=== PATIENT | male | born 1985 | race Caucasian/White ===

== ENCOUNTER 2016-04-01 09:45 | Emergency (ER) | payer OTHER ==
--- NOTE | 2016-04-01 12:01 | REP ---
Clinical: Trauma. Technique: AP, lateral, bilateral oblique views right foot . Findings: The osseous structures and joint spaces are intact and normal. There is no evidence for acute fracture or dislocation. Surrounding soft tissues are unremarkable. No subcutaneous emphysema or radiodense foreign body. Impression: No acute fracture or dislocation. Signed by Alvin Law MD 04/01/2016 11:52 A
--- NOTE | 2016-04-01 12:25 | EDDOCDS ---
Nurse's Notes [facility] Name: Stewart Macias Age: 30 yrs Sex: Male : 1985 Arrival Date: 04/01/2016 Time: 09:45 Bed PR Private MD: NO PRIMARY PHYSICIAN, . Diagnosis: Contusion of right foot Presentation: 04/01 09:55 Presenting complaint: Patient states: Pt presents with injury to right ankle at work dls 3-4 days ago today while shoveling snow re injured ankle. The patients lower extremity appears normal on examination. Adult Sepsis Screening: The patient does not have new or worsening altered mentation. Patient's respiratory rate is less than 22. Systolic blood pressure is greater than 100. Patient has a qSOFA score of 0- Negative Sepsis Screen. Suicide/Homicide risk assessment- the patient denies having any suicidal and/or homicidal ideations and does not present with any other emotional, behavioral or mental health complaints. 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 Transition of care: patient was not received from another setting of care. 09:55 Acuity: SOPHY Level 4 dls 09:55 Method Of Arrival: Walkin/Carried/Asstd dls Triage Assessment: 09:57 General: Appears in no apparent distress, well developed, well nourished, well groomed, dls Behavior is cooperative. Pain: Pain currently is 5 out of 10 on a pain scale. HIV screening NA for this visit Offered previously. Historical: - Allergies: all cillins; - Home Meds: 1. none - PMHx: PTSD; TBI; - PSHx: wisdom teeth; - Social history: Smoking status: Patient uses tobacco products, heavy tobacco smoker. No barriers to communication noted, The patient speaks fluent Nepalese. - Family history: Not pertinent. - : The pt / caregiver states he / she is not on anticoagulants. Home medication list is obtained from the patient. - Exposure Risk Screening:: None identified. Screenin:21 Screening information is obtained from the patient. Primary language is Nepalese. Fall kcs risk: No risks identified. Assistance ADL's: requires no assistance with activities of daily living. Abuse/DV Screen: The patient / caregiver reports he/she is: not in a situation that causes fear, pain or injury. Nutritional screening: No deficits noted. Advance Directives: Currently, there is no health care proxy. There is no active DNR order. There is no living will. There is no Power of Patient Care Secretary. Advance directive information has not previously been placed in an [facility] medical record. home support is adequate. Assessment: 12:20 General: Appears uncomfortable, well developed, well nourished, well groomed, Behavior kcs is cooperative. Awake, alert, oriented. Skin warm and dry. Moves all extremities. Bilateral breath sounds clear. Respirations unlabored. Abdomen soft, non-tender. No apparent distress. The patient / caregiver is instructed regarding the plan of care and ED course. Vital Signs: 09:47 BP 115 / 77; Pulse 83; Resp 18; Temp 98.6(O); Pulse Ox 98% on R/A; Weight 102.06 kg ct3 (R); Height 76 in. (193.04 cm) (R); Pain 6/10; 09:47 Body Mass Index 27.39 (102.06 kg, 193.04 cm) ct3 Vitals: 09:47 Log In Time: April 01, 2016 at 09:45. ct3 ED Course: 09:46 Patient visited by Kate Rizvi PCA. ct3 09:46 Patient moved to Waiting ct3 09:47 Ana [facility] is Private Physician. ct3 09:47 NO PRIMARY PHYSICIAN, . is Private Physician. ct3 09:48 Patient moved to Pre RCE ct3 09:56 Triage Initiated dls 10:47 Patient moved to Triage 2 kcs 10:57 [facility] ar2 10:57 An Tai MD is Attending Physician. ar2 10:57 Patient visited by Elijah Juan PA-C. ar2 11:11 Patient moved to TR1 kcs 11:26 Patient moved to PR2 / 26 ar2 11:41 Patient visited by Savanna Willis RN. mk4 12:09 [facility] is Referral Physician. ar2 12:14 Foot, Complete Returned. EDMS 12:21 Accompanied by Significant Other, Patient has correct armband on for positive kcs identification. Bed in low position. Call light in reach. 12:23 No IV's were initiated during this patient's visit. No procedures done that require kcs assistance. Order Results: Radiology Order: Foot, Complete Test: Foot, Complete REASON FOR EXAMINATION: trauma, lateral foot pain; Clinical: Trauma.; ; Technique: AP, lateral, bilateral oblique views right foot .; ; Findings: The osseous structures and joint spaces are intact and normal. There; is no evidence for acute fracture or dislocation. Surrounding soft tissues are; unremarkable. No subcutaneous emphysema or radiodense foreign body.; ; Impression:; No acute fracture or dislocation.; ; ; Signed by; Alvin Law MD 04/01/2016 11:52 A; Outcome: 12:09 Discharge ordered by Provider. ar2 12:21 The following High Risk Discharge criteria are identified: None. Discharged to home kcs ambulatory, with significant other. Condition: stable. Discharge instructions given to patient, Instructed on discharge instructions, follow up and referral plans. medication usage, Demonstrated understanding of instructions, medications, Pt was receptive of discharge instructions/ teaching. No special radiology studies were completed. 12:23 Discharge Assessment: Patient awake, alert and oriented x 3. No cognitive and/or kcs functional deficits noted. Patient verbalized understanding of disposition instructions. patient administered narcotics - no. Property :Personal belongings accompany Pt. 12:24 Patient left the ED. kcs Signatures: Dispatcher [employer] EDMS Stacey Cadena RN RN Angeles Noonan RN Elijah Hope PA-C PARoya ar2 Kate Rizvi, [employer] INS[employer]ATOR ct3 Savanna Willis RN RN mk4 MTDD
--- NOTE | 2016-04-01 12:25 | EDDOCDS ---
Physician Documentation [facility] Name: Stewart Macias Age: 30 yrs Sex: Male : 1985 Arrival Date: 04/01/2016 Time: 09:45 Bed PR Private MD: NO PRIMARY PHYSICIAN, . Disposition: 04/01/16 12:09 Discharged to Home/Self Care. Impression: Contusion of right foot. - Condition is Stable. - Discharge Instructions: Foot Contusion. - Medication Reconciliation, Local Pharmacy Hours, Work Release Form - 1 day form. - [facility] up: [facility]; When: Call to arrange an appointment; Reason: To establish care. - Problem is new. - Symptoms are unchanged. Historical: - Allergies: all cillins; - Home Meds: 1. none - PMHx: PTSD; TBI; - PSHx: wisdom teeth; - Social history: Smoking status: Patient uses tobacco products, heavy tobacco smoker. No barriers to communication noted, The patient speaks fluent Yakut. - Family history: Not pertinent. - : The pt / caregiver states he / she is not on anticoagulants. Home medication list is obtained from the patient. - Exposure Risk Screening:: None identified. Vital Signs: 04/01 09:47 BP 115 / 77; Pulse 83; Resp 18; Temp 98.6(O); Pulse Ox 98% on R/A; Weight 102.06 kg / ct3 225 lbs (R); Height 76 in. (193.04 cm) (R); Pain 6/10; 09:47 Body Mass Index 27.39 (102.06 kg, 193.04 cm) ct3 MDM: 11:03 Financial registration complete. lg 11:11 Foot, Complete Ordered. EDMS Signatures: Dispatcher [employer] EDMS Stacey Cadena RN RN Angeles Noonan RN RN dls Ignacio James, Gilberto Reg lg Elijah Juan PA-C PA-C ar2 MTDD
--- NOTE | 2016-04-03 13:25 | EDDOCDS ---
Physician Documentation [facility] Name: Stewart Macias Age: 30 yrs Sex: Male : 1985 Arrival Date: 04/01/2016 Time: 09:45 Bed PR Private MD: NO PRIMARY PHYSICIAN, . Disposition: 04/01/16 12:09 Discharged to Home/Self Care. Impression: Contusion of right foot. - Condition is Stable. - Discharge Instructions: Foot Contusion. - Medication Reconciliation, Local Pharmacy Hours, Work Release Form - 1 day form. - Follow up: [facility]; When: Call to arrange an appointment; Reason: To establish care. - Problem is new. - Symptoms are unchanged. Historical: - Allergies: all cillins; - Home Meds: 1. none - PMHx: PTSD; TBI; - PSHx: wisdom teeth; - Social history: Smoking status: Patient uses tobacco products, heavy tobacco smoker. No barriers to communication noted, The patient speaks fluent Hungarian. - Family history: Not pertinent. - : The pt / caregiver states he / she is not on anticoagulants. Home medication list is obtained from the patient. - Exposure Risk Screening:: None identified. Vital Signs: 04/01 09:47 BP 115 / 77; Pulse 83; Resp 18; Temp 98.6(O); Pulse Ox 98% on R/A; Weight 102.06 kg / ct3 225 lbs (R); Height 76 in. (193.04 cm) (R); Pain 6/10; 09:47 Body Mass Index 27.39 (102.06 kg, 193.04 cm) ct3 MDM: 11:03 Financial registration complete. lg 11:11 Foot, Complete Ordered. EDMS 13:22 [facility] Payment Agreement was scanned into [employer] and attached to record. lg 04/02 12:22 T-Sheet-- Draft Copy was scanned into [employer] and attached to record. gb 12:22 Radiology Report was scanned into [employer] and attached to record. gb Signatures: Dispatcher [employer] EDNM Stacey Cadena RN RN kcs Scott, Debra, RN RN dls Brina Mcdermott, Reg Reg gb Ignacio James, Reg Reg lg Elijah Juan PA-C PA-C ar2 The chart was reviewed and I authenticate all verbal orders and agree with the evaluation and treatment provided.Attachments: 04/01 13:22 [facility] Payment Agreement lg 04/02 12:22 T-Sheet-- Draft Copy gb Chart Complete MTDD
--- NOTE | 2016-04-03 13:25 | EDDOCDS ---
Nurse's Notes [facility] Name: Stewart Macias Age: 30 yrs Sex: Male : 1985 Arrival Date: 04/01/2016 Time: 09:45 Bed PR Private MD: NO PRIMARY PHYSICIAN, . Diagnosis: Contusion of right foot Presentation: 04/01 09:55 Presenting complaint: Patient states: Pt presents with injury to right ankle at work dls 3-4 days ago today while shoveling snow re injured ankle. The patients lower extremity appears normal on examination. Adult Sepsis Screening: The patient does not have new or worsening altered mentation. Patient's respiratory rate is less than 22. Systolic blood pressure is greater than 100. Patient has a qSOFA score of 0- Negative Sepsis Screen. Suicide/Homicide risk assessment- the patient denies having any suicidal and/or homicidal ideations and does not present with any other emotional, behavioral or mental health complaints. 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 Transition of care: patient was not received from another setting of care. 09:55 Acuity: SOPHY Level 4 dls 09:55 Method Of Arrival: Walkin/Carried/Asstd dls Triage Assessment: 09:57 General: Appears in no apparent distress, well developed, well nourished, well groomed, dls Behavior is cooperative. Pain: Pain currently is 5 out of 10 on a pain scale. HIV screening NA for this visit Offered previously. Historical: - Allergies: all cillins; - Home Meds: 1. none - PMHx: PTSD; TBI; - PSHx: wisdom teeth; - Social history: Smoking status: Patient uses tobacco products, heavy tobacco smoker. No barriers to communication noted, The patient speaks fluent Surinamese. - Family history: Not pertinent. - : The pt / caregiver states he / she is not on anticoagulants. Home medication list is obtained from the patient. - Exposure Risk Screening:: None identified. Screenin:21 Screening information is obtained from the patient. Primary language is Surinamese. Fall kcs risk: No risks identified. Assistance ADL's: requires no assistance with activities of daily living. Abuse/DV Screen: The patient / caregiver reports he/she is: not in a situation that causes fear, pain or injury. Nutritional screening: No deficits noted. Advance Directives: Currently, there is no health care proxy. There is no active DNR order. There is no living will. There is no Power of Operations Program Manager. Advance directive information has not previously been placed in an [facility] medical record. home support is adequate. Assessment: 12:20 General: Appears uncomfortable, well developed, well nourished, well groomed, Behavior kcs is cooperative. Awake, alert, oriented. Skin warm and dry. Moves all extremities. Bilateral breath sounds clear. Respirations unlabored. Abdomen soft, non-tender. No apparent distress. The patient / caregiver is instructed regarding the plan of care and ED course. Vital Signs: 09:47 BP 115 / 77; Pulse 83; Resp 18; Temp 98.6(O); Pulse Ox 98% on R/A; Weight 102.06 kg ct3 (R); Height 76 in. (193.04 cm) (R); Pain 6/10; 09:47 Body Mass Index 27.39 (102.06 kg, 193.04 cm) ct3 Vitals: 09:47 Log In Time: April 01, 2016 at 09:45. ct3 ED Course: 09:46 Patient visited by Kate Rizvi PCA. ct3 09:46 Patient moved to Waiting ct3 09:47 Ana [facility] is Private Physician. ct3 09:47 NO PRIMARY PHYSICIAN, . is Private Physician. ct3 09:48 Patient moved to Pre RCE ct3 09:56 Triage Initiated dls 10:47 Patient moved to Triage 2 kcs 10:57 Elijah Juan PA-C is PHCP. ar2 10:57 An Tai MD is Attending Physician. ar2 10:57 Patient visited by Elijah Juan PA-C. ar2 11:11 Patient moved to TR1 kcs 11:26 Patient moved to PR2 / 26 ar2 11:41 Patient visited by Savanna Willis RN. mk4 12:09 [facility] is Referral Physician. ar2 12:14 Foot, Complete Returned. EDMS 12:21 Accompanied by Significant Other, Patient has correct armband on for positive kcs identification. Bed in low position. Call light in reach. 12:23 No IV's were initiated during this patient's visit. No procedures done that require kcs assistance. 13:22 [facility] [place] was scanned into [employer] and attached to record. lg 04/02 12:22 T-Sheet-- Draft Copy was scanned into [employer] and attached to record. gb 12:22 Radiology Report was scanned into [employer] and attached to record. gb Order Results: Radiology Order: Foot, Complete Test: Foot, Complete REASON FOR EXAMINATION: trauma, lateral foot pain; Clinical: Trauma.; ; Technique: AP, lateral, bilateral oblique views right foot .; ; Findings: The osseous structures and joint spaces are intact and normal. There; is no evidence for acute fracture or dislocation. Surrounding soft tissues are; unremarkable. No subcutaneous emphysema or radiodense foreign body.; ; Impression:; No acute fracture or dislocation.; ; ; Signed by; Alvin Law MD 04/01/2016 11:52 A; Outcome: 04/01 12:09 Discharge ordered by Provider. ar2 12:21 The following High Risk Discharge criteria are identified: None. Discharged to home kcs ambulatory, with significant other. Condition: stable. Discharge instructions given to patient, Instructed on discharge instructions, follow up and referral plans. medication usage, Demonstrated understanding of instructions, medications, Pt was receptive of discharge instructions/ teaching. No special radiology studies were completed. 12:23 Discharge Assessment: Patient awake, alert and oriented x 3. No cognitive and/or kcs functional deficits noted. Patient verbalized understanding of disposition instructions. patient administered narcotics - no. Property :Personal belongings accompany Pt. 12:24 Patient left the ED. kcs Signatures: Dispatcher [employer] EDMS Stacey Cadena RN RN kcs Scott, Debra RN Brina Porter, Reg Reg gb Ignacio James, Reg Reg lg Elijah Juan, PA-C PA-C ar2 Kate Rizvi, COOK TACO COOK TACO ct3 Savanna Willis RN RN mk4 Chart Complete MTDD
--- NOTE | 2016-04-03 13:25 | EDDOCDS ---
Physician Documentation [facility] Name: Stewart Macias Age: 30 yrs Sex: Male : 1985 Arrival Date: 04/01/2016 Time: 09:45 Bed PR Private MD: NO PRIMARY PHYSICIAN, . Disposition: 04/01/16 12:09 Discharged to Home/Self Care. Impression: Contusion of right foot. - Condition is Stable. - Discharge Instructions: Foot Contusion. - Medication Reconciliation, Local Pharmacy Hours, Work Release Form - 1 day form. - Follow up: [facility]; When: Call to arrange an appointment; Reason: To establish care. - Problem is new. - Symptoms are unchanged. Historical: - Allergies: all cillins; - Home Meds: 1. none - PMHx: PTSD; TBI; - PSHx: wisdom teeth; - Social history: Smoking status: Patient uses tobacco products, heavy tobacco smoker. No barriers to communication noted, The patient speaks fluent Icelandic. - Family history: Not pertinent. - : The pt / caregiver states he / she is not on anticoagulants. Home medication list is obtained from the patient. - Exposure Risk Screening:: None identified. Vital Signs: 04/01 09:47 BP 115 / 77; Pulse 83; Resp 18; Temp 98.6(O); Pulse Ox 98% on R/A; Weight 102.06 kg / ct3 225 lbs (R); Height 76 in. (193.04 cm) (R); Pain 6/10; 09:47 Body Mass Index 27.39 (102.06 kg, 193.04 cm) ct3 MDM: 11:03 Financial registration complete. lg 11:11 Foot, Complete Ordered. EDMS 13:22 [facility] Payment Agreement was scanned into [employer] and attached to record. lg 04/02 12:22 T-Sheet-- Draft Copy was scanned into [employer] and attached to record. gb 12:22 Radiology Report was scanned into [employer] and attached to record. gb Signatures: Dispatcher [employer] EDPR Stacey Cadena RN RN kcs Scott, Debra, RN RN dls Brina Mcdermott, Reg Reg gb Ignacio James, Reg Reg lg Elijah Juan PA-C PA-C ar2 The chart was reviewed and I authenticate all verbal orders and agree with the evaluation and treatment provided.Attachments: 04/01 13:22 [facility] [place] Agreement lg 04/02 12:22 T-Sheet-- Draft Copy gb Chart Complete MTDD
== END 2016-04-01 12:24 | disposition home or self-care (01) ==
LOC: M ED 09:45
DX: S90.31XA Contusion of right foot, initial encounter (principal); X58.XXXA Exposure to other specified factors, initial encounter; Y92.89 Other specified places as the place of occurrence of the external cause; Y93.89 Activity, other specified; Y99.8 Other external cause status; F43.10 Post-traumatic stress disorder, unspecified; Z87.820 Personal history of traumatic brain injury; Z88.0 Allergy status to penicillin; F17.210 Nicotine dependence, cigarettes, uncomplicated

== ENCOUNTER 2016-06-22 12:15 | Emergency (ER) | payer OTHER ==
[~2016-06-22] VITALS: Ht 193 cm; Wt 99.8 kg
[2016-06-22 13:18] LABS: BASO # 0.1 K/mm3 (0.0-0.2); EOS # 0.5 K/mm3 (0.0-0.50); EOS % 5.2 % (0.0-3.0); LARGE UNSTAINED CELL # 0.1 K/mm3 (0.0-0.4); LARGE UNSTAINED CELL % 1.2 % (0.0-4.0); LYMPH # 2.6 K/mm3 (1.5-6.5); LYMPH % 28.2 % (24.0-44.0); MEAN CORPUSCULAR HEMOGLOBIN 30.3 pg (27.0-33.0); MEAN CORPUSCULAR HGB CONC 33.6 g/dl (32.0-36.5); MEAN CORPUSCULAR VOLUME 90.2 fl (80.0-96.0); MONO # 0.4 K/mm3 (0.0-0.8); NEUTROPHILS # 5.3 K/mm3 (1.8-7.7); NEUTROPHILS % 59.5 % (36.0-66.0); PLATELET COUNT, AUTOMATED 263 k/mm3 (150-450); RED CELL DISTRIBUTION WIDTH 12.5 % (11.5-14.5); WHITE BLOOD COUNT 8.9 K/mm3 (4.0-10.0)
[2016-06-22 13:39] LABS: ERYTHROCYTE SEDIMENTATION RATE 1 mm/hr (0-15)
[2016-06-22 13:46] LABS: ANION GAP 5 MEQ/L (8-16); BLOOD UREA NITROGEN 12 MG/DL (7-18); CALCIUM LEVEL 9.1 MG/DL (8.5-10.1); CARBON DIOXIDE LEVEL 30 MEQ/L (21-32); CHLORIDE LEVEL 105 MEQ/L (98-107); GLOMERULAR FILTRATION RATE > 60.0 (>60); GLUCOSE, FASTING 75 MG/DL (70-105); POTASSIUM SERUM 4.1 MEQ/L (3.5-5.1); SODIUM LEVEL 140 MEQ/L (136-145); T UPTAKE 33 % (33-40); THYROXINE (T4) 7.9 UG/DL (4.5-12.0)
[2016-06-22] MEDS ORDERED: ISOVUE-370 76% 100ML VIAL (Q9967) As Ordered ONE (14:12)
[2016-06-22] MEDS ORDERED: HYDR1CRE27 TOP (14:48)
[2016-06-22 15:19] VITALS: BP 122/78
--- NOTE | 2016-06-23 08:11 | REP ---
CT NECK WITH CONTRAST: HISTORY: Right neck mass. COMPARISON: None. CONTRAST: 100 mL Isovue-370 SUPRAHYOID NECK: The parapharyngeal, retropharyngeal, pharyngomucosal, carotid, horse show judge and parotid spaces are normal. The prevertebral and paraspinal components of the perivertebral space are normal. INFRAHYOID NECK: The aforementioned neck spaces along with the posterior cervical space are normal. Anterior to the thyroid cartilage on the right, there is a 1.6 x 1.3 x 1.1 cm sized low density mass, but having higher than water Hounsfield unit readings. 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 Signed by Dev Arenas DO 06/23/2016 09:55 A
== END 2016-06-22 15:15 | disposition home or self-care (01) ==
LOC: M ED 12:54
DX: Q18.0 Sinus, fistula and cyst of branchial cleft (principal); R21 Rash and other nonspecific skin eruption; M25.561 Pain in right knee; M25.562 Pain in left knee; F17.200 Nicotine dependence, unspecified, uncomplicated; Z88.0 Allergy status to penicillin
CPT/HCPCS: 70491; 80048; 84436; 84443; 84479; 85025; 85652; 86140; 99282; Q9967

== ENCOUNTER 2016-08-12 23:13 | Emergency (ER) | payer OTHER ==
[~2016-08-12] VITALS: Ht 182.9 cm; Wt 103.1 kg
[~2016-08-12 23:13] MED LIST: HYDR1CRE27 TOP
[2016-08-13] MEDS ORDERED: NS 1,000 ML IV ONE
[2016-08-13] MEDS ORDERED: KETOROLAC 30 MG/ML VIAL (J1885) IV ONE
[2016-08-13 00:07] LABS: BASO # 0.1 K/mm3 (0.0-0.2); BASO % 0.8 % (0.0-1.0); EOS # 0.5 K/mm3 (0.0-0.50); EOS % 5.3 % (0.0-3.0); LARGE UNSTAINED CELL # 0.1 K/mm3 (0.0-0.4); LARGE UNSTAINED CELL % 1.5 % (0.0-4.0); LYMPH # 3.1 K/mm3 (1.5-6.5); LYMPH % 31.3 % (24.0-44.0); MEAN CORPUSCULAR HEMOGLOBIN 31.1 pg (27.0-33.0); MEAN CORPUSCULAR HGB CONC 34.3 g/dl (32.0-36.5); MEAN CORPUSCULAR VOLUME 90.6 fl (80.0-96.0); MONO # 0.5 K/mm3 (0.0-0.8); MONO % 4.7 % (0.0-5.0); NEUTROPHILS # 5.4 K/mm3 (1.8-7.7); NEUTROPHILS % 56.4 % (36.0-66.0); PLATELET COUNT, AUTOMATED 212 k/mm3 (150-450); RED CELL DISTRIBUTION WIDTH 12.4 % (11.5-14.5); WHITE BLOOD COUNT 9.5 K/mm3 (4.0-10.0)
[2016-08-13 00:12] LABS: ANION GAP 4 MEQ/L (8-16); BLOOD UREA NITROGEN 11 MG/DL (7-18); CALCIUM LEVEL 9.6 MG/DL (8.5-10.1); CARBON DIOXIDE LEVEL 30 MEQ/L (21-32); CHLORIDE LEVEL 108 MEQ/L (98-107); CREATININE FOR GFR 0.87 MG/DL (0.70-1.30); GLOMERULAR FILTRATION RATE > 60.0 (>60); GLUCOSE, FASTING 102 MG/DL (70-105); POTASSIUM SERUM 3.7 MEQ/L (3.5-5.1); SODIUM LEVEL 142 MEQ/L (136-145)
[2016-08-13] MEDS ORDERED: ONDANSETRON 4MG/2ML VIAL (J2405) IV ONE (02:45)
[2016-08-13 02:57] VITALS: BP 135/94
--- NOTE | 2016-08-13 06:18 | REP ---
Clinical: Chest pain . Comparison: None . Technique: PA and lateral. Findings: The mediastinum and cardiac silhouette are normal. The lung plummer are clear and without acute consolidation, effusion, or pneumothorax. The skeletal structures are intact and normal. Impression: 1. No acute cardiopulmonary process. Signed by Alvin Law MD 08/13/2016 06:09 A
--- NOTE | 2016-08-14 07:25 | ECGEPIP ---
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
== END 2016-08-13 00:46 | disposition home or self-care (01) ==
LOC: M ED 23:13
DX: R07.89 Other chest pain (principal); F17.200 Nicotine dependence, unspecified, uncomplicated; Z88.0 Allergy status to penicillin
CPT/HCPCS: 36415; 71020; 80048; 82550; 82553; 85025; 85379; 93005; 93041; 94760; 96374; 96375; 99285; J1885; J2405

== ENCOUNTER 2017-03-29 12:54 | Emergency (ER) | payer OTHER ==
[2017-03-29] MEDS: ACETAMINOPHEN TAB 650MG DOSE (2X325MG) PO (15:42)
[2017-03-29] MEDS: IBUPROFEN 800 MG TAB PO (15:42)
[2017-03-29 15:56] LABS: INFLUENZA A AMPLIFICATION POSITIVE (NEGATIVE); INFLUENZA B AMPLIFICATION NEGATIVE (NEGATIVE)
[2017-03-29] MEDS: OSELTAMIVIR PHOSPHATE 75 MG CAP (TAMIFLU) PO (16:45)
== END 2017-03-29 17:00 | disposition home or self-care (01) ==
LOC: M ED 12:54
DX: J09.X2 Influenza due to identified novel influenza A virus with other respiratory manifestations (principal); F17.200 Nicotine dependence, unspecified, uncomplicated; Z88.0 Allergy status to penicillin
CPT/HCPCS: 87502

== ENCOUNTER 2018-02-10 08:01 | Emergency (ER) | payer OTHER ==
[~2018-02-10] VITALS: Ht 193 cm; Wt 100.0 kg
[2018-02-10 08:01] VITALS: BP 162/100
[~2018-02-10 08:01] MED LIST changes: +OSEL75CA PO
[2018-02-10] MEDS ORDERED: APAP325T4 PO (08:05)
[2018-02-10] MEDS ORDERED: IBUP-1022 PO (08:05)
[2018-02-10] MEDS ORDERED: PERC5TAB12 PO (08:29)
[2018-02-10] MEDS ORDERED: PERCOCET 5MG/325MG TAB PO SCH (08:30)
== END 2018-02-10 08:42 | disposition home or self-care (01) ==
LOC: M ED 08:01
DX: R03.0 Elevated blood-pressure reading, without diagnosis of hypertension (principal); K08.89 Other specified disorders of teeth and supporting structures; S02.5XXA Fracture of tooth (traumatic), initial encounter for closed fracture; X58.XXXA Exposure to other specified factors, initial encounter; Y92.89 Other specified places as the place of occurrence of the external cause; F17.200 Nicotine dependence, unspecified, uncomplicated; Z88.0 Allergy status to penicillin

== ENCOUNTER 2018-03-19 02:57 | Emergency (ER) | payer OTHER ==
[~2018-03-19] VITALS: Ht 193 cm; Wt 100.0 kg
[~2018-03-19 02:57] MED LIST changes: +APAP325T4 PO; +IBUP-1022 PO; +PERC5TAB12 PO
[2018-03-19 03:00] VITALS: BP 146/102
[2018-03-19] MEDS ORDERED: BUPIVACAINE LIPOSOME/PF 1.3% 20ML VIAL (13.3MG/ML)(EXPAREL)(C9290 PER1MG) INFIL ONE (03:45)
[2018-03-19] MEDS ORDERED: CETACAINE SPRAY 5GM As Ordered ONE (03:55)
[2018-03-19] MEDS ORDERED: CLEO300C2 PO (04:07)
== END 2018-03-19 04:18 | disposition home or self-care (01) ==
LOC: M ED 02:57
DX: K02.9 Dental caries, unspecified (principal); Z88.0 Allergy status to penicillin; F17.210 Nicotine dependence, cigarettes, uncomplicated
CPT/HCPCS: 99282; C9290

== ENCOUNTER 2019-05-16 20:17 | Emergency (ER) | payer OTHER ==
[~2019-05-16] VITALS: Ht 193 cm; Wt 106.8 kg
[~2019-05-16 20:17] MED LIST changes: +CLEO300C2 PO
[2019-05-16 22:12] VITALS: BP 136/96
--- NOTE | 2019-05-17 08:09 | REP ---
Left shoulder series: Three views. History: Left shoulder pain. Unknown injury. Findings: Three views of the left shoulder demonstrate normal alignment of the glenohumeral and acromioclavicular joints. Periarticular soft tissues are unremarkable. No fracture or subluxation is visible. Impression: Negative left shoulder radiographs. Electronically Signed by Neeraj Porter MD 05/17/2019 08:01 A
== END 2019-05-16 22:13 | disposition home or self-care (01) ==
LOC: M ED 20:17
DX: M25.512 Pain in left shoulder (principal); M54.5 Low back pain; F43.10 Post-traumatic stress disorder, unspecified; F17.200 Nicotine dependence, unspecified, uncomplicated; Z88.0 Allergy status to penicillin; Z91.030 Bee allergy status

== ENCOUNTER 2019-09-21 06:35 | Day surgery (SDC) | payer OTHER ==
[~2019-09-21 06:35] MED LIST changes: +VANCOMYCIN 1000MG/20ML VIAL ONE
[2019-09-21] MEDS ORDERED: fentaNYL 100 MCG/2 ML INJECTION (J3010) ONE ×2 (07:13→07:36)
[2019-09-21] MEDS ORDERED: propofoL 200 MG/20 ML VIAL ONE (07:13)
[2019-09-21] MEDS ORDERED: ROCURONIUM BROMIDE 50 MG/5 ML VIAL ONE (07:13)
[2019-09-21] MEDS ORDERED: MIDAZOLAM INJ 2MG/2ML VIAL (J2250 PER 1MG) ONE ×2 (07:13→07:36)
[2019-09-21] MEDS ORDERED: dexameTHASONE 4 MG/ML 1ML VIAL (J1100 PER 1MG) ONE (07:13)
[2019-09-21] MEDS ORDERED: LIDOCAINE 2% 100MG/5ML SDV (FOR ANES.) ONE (07:13)
[2019-09-21] MEDS ORDERED: EPINEPHrine INJ 1 MG/ML 1ML AMP ONE ×2 (07:14→08:00)
[2019-09-21] MEDS ORDERED: SUGAMMADEX SODIUM 500 MG/5 ML VIAL (BRIDION) ONE (08:00)
[2019-09-21] MEDS ORDERED: LABETALOL 100MG/20ML VIAL ONE (08:00)
[2019-09-21] MEDS ORDERED: ROPIvacaine 0.5% 30ML INJECTION (J2795 PER 1MG) ONE (08:00)
[2019-09-21] MEDS ORDERED: dexameTHASONE 10MG/1ML VIAL PRES.FREE (J1100 PER 1MG) ONE (08:00)
[2019-09-21] MEDS ORDERED: ACETAMINOPHEN 1000MG 100ML IV BTL (OFIRMEV) (J0131 PER 10MG) ONE (08:00)
[2019-09-21] MEDS ORDERED: ONDANSETRON 4MG/2ML VIAL ONE (08:00)
--- NOTE | 2019-11-25 13:29 | RO ---
DATE OF OPERATION: 09/21/2019 PREOPERATIVE DIAGNOSES: Left shoulder posterior labral tear. Left shoulder superior labral tear. Left shoulder impingement. POSTOPERATIVE DIAGNOSES: Left shoulder posterior labral tear with instability. Left shoulder type 1 superior labral tear. Left shoulder glenoid chondromalacia. Left shoulder impingement. PROCEDURES: Left shoulder arthroscopic posterior labral repair. Left shoulder superior labral debridement and chondroplasty. Left shoulder subacromial decompression. SURGEON: Hugo Camarillo M.D. WET PROCESS ASSISTANT HEAD MILLER: Juan Forbes PA-C ANESTHESIA: General with preoperative nerve block. INTRAVENOUS FLUIDS: Lactated ringer. ESTIMATED BLOOD LOSS: 10 mL. IMPLANTS: Arthrex 2.9 mm BioComposite PushLock anchors with labral tape x3. CLOSURE: Nylon. DESCRIPTION OF PROCEDURE: Patient identified in the preoperative holding area with the left shoulder marked by myself. Patient noted ongoing symptoms of posterior instability. He had an interscalene nerve block by anesthesia. He then was brought to the operating room and placed supine on a well-padded OR table with a beanbag. General anesthesia was induced. Exam under anesthesia revealed 170 degrees of forward flexion, 90 of external rotation, grade 2+ posterior load and shift, grade 1 anterior load and shift. He was then placed into the right side down lateral decubitus position with an axillary roll and all bony prominences were well-padded. Bilateral Venodyne boots for deep vein thrombosis (DVT) prophylaxis. He received appropriate IV antibiotics within one hour of incision. The left arm was placed into the Arthrex STaR Sleeve lateral decubitus traction davison with 10 pounds of traction. The left shoulder was prepped and draped in normal sterile fashion with ChloraPrep. Prior to incision, a time-out was performed per hospital protocol. Juan Forbes was present for the entire procedure and participated in all essential portions of the procedure. This included patient positioning and draping, holding the arthroscope, providing longitudinal traction and rotation of the arm to assist with anchor placement. He also assisted with suture retrieval, loading of anchors, and holding the arthroscope during anchor placement. He performed a wound closure, applied the dressing and sling. The left shoulder was insufflated with lactated ringers. A standard posterior viewing portal made with an 11 blade. A 30-degree arthroscope was introduced into the joint and diagnostic arthroscopy carried out. There was some superior labral tearing, but this did not extend into the biceps. Anterior labrum intact. There was a large macerated tear of the posterior inferior labrum with grade 3 chondromalacia at that posterior inferior glenoid. Grade 1 chondromalacia of the humeral head. No tearing of the rotator cuff. Subscapularis was intact. Two anterior portals were established through the rotator interval and arthroscope placed into the anterior superior portal. Getting excellent view of the posterior inferior glenoid, it was clear that there was a large unstable tear. The percutaneous labral repair kit was opened, and I developed an accessory posterolateral portal to give a better angle for drawing at the posterior inferior glenoid. A shaver was used to perform a chondroplasty to the glenoid. I also debrided the free edge labral fraying. Hooked cautery was then used to develop the plane between the posterior labrum and glenoid. Labral elevators were then placed through the anterior portal to subperiosteally elevate the capsule and labrum off the glenoid neck. SutureLasso was used to shuttle labral tape through the posterior inferior capsule at the 6 o'clock position, and then I drilled for a PushLock anchor at the 5:30 position. Next, these steps were repeated two additional times so a total of three PushLock anchors, grasping both capsule and labrum, and those anchors were placed at the 4:30 and 3 o'clock positions. At this point, there was a nice scientology of the posterior and inferior bumper. The humeral head was centrally located on the glenoid. Prior the posterior labral repair, I performed a debridement of the superior labrum with the shaver and on propping on the biceps labral anchor, it was noted to be stable. No indication for biceps tenodesis. After the scope was placed into the subacromial space where there was dense bursitis, through a lateral working portal, I performed a bursectomy with a shaver and cautery. There was no bursal-sided rotator cuff tear, but there was some tendinopathy. No large subacromial spur. No indication for acromioplasty. Shoulder was then irrigated and drained. Portals closed with nylon suture. Bulky sterile dressing applied. He was carefully placed into the ARC 2.0 sling gunslinger position. He was extubated and transferred to the PACU in stable condition. [facility]
== END 2019-09-21 11:30 | disposition home or self-care (01) ==
LOC: M SDC 06:35
PROVIDERS: ATTEND Orthopaedic Surgery
DX: S43.431A Superior glenoid labrum lesion of right shoulder, initial encounter (principal); M75.42 Impingement syndrome of left shoulder; M94.212 Chondromalacia, left shoulder; F43.10 Post-traumatic stress disorder, unspecified; G47.30 Sleep apnea, unspecified; Z88.0 Allergy status to penicillin; X58.XXXA Exposure to other specified factors, initial encounter; Y92.89 Other specified places as the place of occurrence of the external cause; Y93.9 Activity, unspecified; Y99.9 Unspecified external cause status
CPT/HCPCS: 29807; 29826; 64415; C1713; J0131; J0171; J1100; J2250; J2405; J2795; J3010; J3370

== ENCOUNTER → 2020-10-08 | Outpatient (CLI) | payer OTHER ==
[~2020-10-08] MED LIST changes: -VANCOMYCIN 1000MG/20ML VIAL ONE
--- NOTE | 2020-10-15 17:57 | SLEEPCENT ---
DATE: 10/08/2020 ORDERED BY: Thi GRIJALVA Nocturnal polysomnography was performed for evaluation of sleep physiology. Eight hours and 5 minutes of data were reviewed. There were 387.5 minutes of sleep identified. Sleep latency was mildly prolonged at 34 minutes. REM sleep was delayed at 252 minutes. Sleep architecture showed fragmentation. There were two REM cycles noted. The overall sleep efficiency was 80.9%. The electrocardiogram showed a sinus rhythm with an average heart rate of 60 beats per minute. Rate variability was seen surrounding respiratory events and ranged 50-80. EEG showed reasonably normal waveforms for wake and sleep. There were no focal events identified. There were 181 respiratory events identified of 10 seconds in duration or greater for an apnea-hypopnea index of 28. The events were primarily obstructive, not exclusive to sleep stage, more frequent but not exclusive to the supine posture. Arousals from respiratory events occurred 8.7 times per hour, and oxygen desaturations were seen into the 80s. Remaining measures of sleep physiology were normal. IMPRESSIONS: Obstructive sleep apnea syndrome (G47.33). Apnea-hypopnea index 28.0. RECOMMENDATION: The patient should be encouraged to return to [facility] for pressure [facility]. In the interim, alcohol and sedative avoidance should be practiced and caution exercised during the operation of motor vehicles.
== END ==
LOC: M SLEEP 20:02
PROVIDERS: ATTEND Nurse Practitioner Primary Care
DX: G47.33 Obstructive sleep apnea (adult) (pediatric) (principal)

== ENCOUNTER 2021-01-30 19:55 | Emergency (ER) | payer OTHER ==
[~2021-01-30] VITALS: Ht 193 cm; Wt 106.8 kg
[2021-01-30 19:55] VITALS: BP 151/96
== END 2021-01-30 20:02 | disposition left against medical advice (07) ==
LOC: M ED 19:55
DX: Z53.21 Procedure and treatment not carried out due to patient leaving prior to being seen by health care provider (principal)

== ENCOUNTER → 2021-09-18 | Outpatient (REF) | payer OTHER | LOC: M LAB REF 16:06 | PROVIDERS: ATTEND Physician Assistant Medical | DX: L02.11 Cutaneous abscess of neck (principal) ==

== ENCOUNTER 2022-10-03 16:50 | Emergency (ER) | payer OTHER ==
[~2022-10-03] VITALS: Ht 193 cm; Wt 109.6 kg
[2022-10-03 21:32] LABS: BASO # 0.1 10^3/uL (0.0-0.2); BASO % 0.8 % (0.0-1.0); EOS # 0.4 10^3/uL (0.0-0.5); EOS % 3.9 % (0.0-3.0); HEMATOCRIT 47.9 % (42.0-52.0); HEMOGLOBIN 16.6 g/dl (13.5-17.5); LYMPH # 3.6 10^3/uL (1.5-5.0); LYMPH % 34.5 % (24.0-44.0); MEAN CORPUSCULAR HEMOGLOBIN 30.9 pg (27.0-33.0); MEAN CORPUSCULAR HGB CONC 34.7 g/dl (32.0-36.5); MONO # 0.5 10^3/uL (0.0-0.8); MONO % 5.2 % (2.0-8.0); NEUTROPHILS # 5.7 10^3/uL (1.5-8.5); PLATELET COUNT, AUTOMATED 256 10^3/uL (150-450); RED BLOOD COUNT 5.38 10^6/uL (4.30-6.10); WHITE BLOOD COUNT 10.4 10^3/uL (4.0-10.0)
[2022-10-03 22:03] LABS: ALBUMIN 4.5 G/DL (3.2-5.2); BILIRUBIN,DIRECT 0.3 MG/DL (<0.4); BILIRUBIN,TOTAL 0.8 MG/DL (0.3-1.2); TOTAL PROTEIN 7.3 G/DL (5.7-8.2)
[2022-10-03] MEDS ORDERED: IBUP-1022 PO (22:15)
[2022-10-03 22:25] VITALS: BP 142/88; TEMP 97.9; O2SAT 100
== END 2022-10-03 22:27 | disposition home or self-care (01) ==
LOC: M ED 16:50
DX: S76.811A Strain of other specified muscles, fascia and tendons at thigh level, right thigh, initial encounter (principal); X50.0XXA Overexertion from strenuous movement or load, initial encounter; Y92.89 Other specified places as the place of occurrence of the external cause; K76.0 Fatty (change of) liver, not elsewhere classified; Z87.442 Personal history of urinary calculi; Z88.0 Allergy status to penicillin; Z91.030 Bee allergy status

== ENCOUNTER 2023-10-30 17:15 | Emergency (ER) | payer OTHER ==
[~2023-10-30] VITALS: Ht 193 cm; Wt 110.0 kg
[2023-10-30 17:16] VITALS: TEMP 97.5
[2023-10-30] MEDS ORDERED: EPIP0.3I2 IM (17:25)
[2023-10-30] MEDS: predniSONE 20 MG TAB PO ONE (19:17)
[2023-10-30] MEDS: diphenhydrAMINE 25MG CAP PO ONE (19:17)
[2023-10-30] MEDS ORDERED: PRED20TA PO (19:21)
[2023-10-30 19:28] VITALS: BP 133/99; O2SAT 97
== END 2023-10-30 19:29 | disposition home or self-care (01) ==
LOC: M ED 18:30
DX: T63.441A Toxic effect of venom of bees, accidental (unintentional), initial encounter (principal); F32.A Depression, unspecified; F43.10 Post-traumatic stress disorder, unspecified; M48.061 Spinal stenosis, lumbar region without neurogenic claudication; F17.200 Nicotine dependence, unspecified, uncomplicated; F10.10 Alcohol abuse, uncomplicated; Z87.820 Personal history of traumatic brain injury; Z88.0 Allergy status to penicillin; Z91.030 Bee allergy status; Z79.52 Long term (current) use of systemic steroids; Z79.899 Other long term (current) drug therapy
CPT/HCPCS: 99283; J7512